=== PATIENT | male | born 1990 | race Caucasian/White ===

== ENCOUNTER 2024-05-26 10:52 | Emergency (ER) | payer SELFPAY ==
[2024-05-26] MEDS ORDERED: Acetaminophen 500 MG TAB ONE (12:47)
[2024-05-26] MEDS ORDERED: Ipratropium/Albuterol 3 ML NEB ONE (12:49)
[2024-05-26 12:59] LABS: Influenza A by NAA Not Detected (NotDetected); Influenza B by NAA Not Detected (NotDetected); SARS-CoV-2 NAA Rapid Test Not Detected (NotDetected)
== END 2024-05-26 13:40 | disposition home or self-care (01) ==
LOC: ERS 10:52
DX: J45.901 Unspecified asthma with (acute) exacerbation (principal); J06.9 Acute upper respiratory infection, unspecified
CPT/HCPCS: 71046; J7620